=== PATIENT | female | born 1980 | race Caucasian/White ===

== ENCOUNTER 2017-02-20 18:32 | Inpatient (IN) | payer OTHER, SELFPAY ==
[~2017-02-20] VITALS: Ht 152.4 cm; Wt 146.0 kg
[2017-02-20] MEDS ORDERED: OMEP-110 PO (19:42)
[2017-02-20] MEDS ORDERED: DICY10CA53 PO (19:42)
[2017-02-20] MEDS ORDERED: ATOR20TA PO (19:42)
[2017-02-20] MEDS ORDERED: ALPR1TAB2 PO (19:42)
[2017-02-20] MEDS ORDERED: CHOL20002 PO (19:42)
[2017-02-20] MEDS ORDERED: LOSA1TAB17 PO (19:42)
[2017-02-20] MEDS ORDERED: SODIUM CHLORIDE FLUSH 10ML SYR IVF ONE (20:30)
[2017-02-20] MEDS ORDERED: SODIUM CHLORIDE 0.9% 1,000ML IVBOLUS ONE (20:30)
[2017-02-20] MEDS ORDERED: ONDANSETRON 2MG/ML, 2ML IVPush ONE (21:00)
[2017-02-20] MEDS ORDERED: MORPHINE SULFATE 4 MG/ML, 1ML IVPush PRN (21:00)
[2017-02-20 21:34] LABS: ASPARTATE AMINO TRANSFERASE 19 U/L (15-37); BLOOD UREA NITROGEN 11 mg/dL (7-18)
[2017-02-20] MEDS ORDERED: MORPHINE SULFATE 4 MG/ML, 1ML ONE (21:38)
[2017-02-20] MEDS ORDERED: ONDANSETRON 2MG/ML, 2ML ONE (21:38)
[2017-02-20] MEDS ORDERED: OMNIPAQUE 350 MG/ML, 150 ML BOTTLE ONE (22:00)
[2017-02-20] MEDS ORDERED: ENOXAPARIN 150 MG/ML SQ ONE (23:45)
[2017-02-21] MEDS ORDERED: ONDANSETRON 2MG/ML, 2ML IVP PRN
[2017-02-21] MEDS ORDERED: Enoxaparin 1 mg/kg protocol SQ SCH
[2017-02-21] MEDS ORDERED: HYDROcodone/APAP 5/325 TABLET PO PRN
[2017-02-21] MEDS ORDERED: CEFTAROLINE 600 MG in SODIUM CHLORIDE 0.9% 100 ML IV SCH
[2017-02-21 00:04] LABS: IS PT STATUS REG ER OR PRE ER? YES
[2017-02-21] MEDS ORDERED: KETOROLAC 30 MG/1 ML IVPush PRN (00:30)
[2017-02-21] MEDS ORDERED: KETOROLAC 30 MG/1 ML ONE (05:51)
[2017-02-21 05:52] LABS: BLOOD UREA NITROGEN 10 mg/dL (7-18)
[2017-02-21 06:03] LABS: ASPARTATE AMINO TRANSFERASE 19 U/L (15-37)
[2017-02-21 06:06] LABS: IS PT STATUS REG ER OR PRE ER? YES
[2017-02-21 06:13] LABS: ANISOCYTOSIS 2+; POLYCHROMASIA 1+
[2017-02-21] MEDS: MULTIVITAMIN 1 TABLET PO SCH (09:51)
[2017-02-21] MEDS: DICYCLOMINE 10 MG CAPSULE PO SCH ×2 (09:51→22:55)
[2017-02-21] MEDS: THIAMINE 100MG TABLET PO SCH (09:52)
[2017-02-21] MEDS: LOSARTAN 50MG TABLET PO SCH (09:52)
[2017-02-21] MEDS: FOLIC ACID 1 MG TABLET PO SCH (09:52)
[2017-02-21] MEDS: HYDROCHLOROTHIAZIDE 25 MG TABLET PO SCH (09:53)
[2017-02-21] MEDS ORDERED: ENOXAPARIN 150 MG/ML SQ SCH ×2 (12:00→12:30)
[2017-02-21] MEDS: NYSTATIN CRM 15GM TP SCH ×2 (12:07→22:56)
[2017-02-21] MEDS: ACETAMINOPHEN 325 MG TABLET PO PRN (14:55)
[2017-02-21] MEDS: ALPRazolam 1MG TABLET PO PRN (19:48)
[2017-02-21] MEDS: APIXABAN 5 MG TABLET PO SCH (22:56)
[2017-02-21] MEDS: ATORVASTATIN 20 MG TABLET PO SCH (22:56)
[2017-02-22] MEDS: ACETAMINOPHEN 325 MG TABLET PO PRN ×3 (02:12→21:06)
[2017-02-22 04:00] VITALS: BP 118/48
[2017-02-22 05:01] LABS: BLOOD UREA NITROGEN 15 mg/dL (7-18); TOTAL IRON BINDING CAPACITY 479 mcg/dL (250-450)
[2017-02-22 05:41] LABS: ANISOCYTOSIS 1+; MICROCYTOSIS 1+; POLYCHROMASIA 1+
[2017-02-22] MEDS: THIAMINE 100MG TABLET PO SCH (09:00)
[2017-02-22] MEDS: MULTIVITAMIN 1 TABLET PO SCH (09:00)
[2017-02-22] MEDS: FOLIC ACID 1 MG TABLET PO SCH (09:00)
[2017-02-22 10:15] LABS: ABG COLLECTION SITE RIGHT RADIAL; COLLATERAL CIRCULATION TESTING NORMAL
[2017-02-22] MEDS: LOSARTAN 50MG TABLET PO SCH (10:41)
[2017-02-22] MEDS: APIXABAN 5 MG TABLET PO SCH ×2 (10:41→21:07)
[2017-02-22] MEDS: DICYCLOMINE 10 MG CAPSULE PO SCH ×2 (10:41→21:06)
[2017-02-22] MEDS: HYDROCHLOROTHIAZIDE 25 MG TABLET PO SCH (10:42)
[2017-02-22 12:21] LABS: ABG COLLECTION SITE LEFT RADIAL; COLLATERAL CIRCULATION TESTING NORMAL
[2017-02-22] MEDS: NYSTATIN CRM 15GM TP SCH ×2 (14:00→21:07)
[2017-02-22 16:04] LABS: ABG COLLECTION SITE RIGHT RADIAL; COLLATERAL CIRCULATION TESTING NORMAL
[2017-02-22] MEDS: ALPRazolam 1MG TABLET PO PRN (21:06)
[2017-02-22] MEDS: ATORVASTATIN 20 MG TABLET PO SCH (21:07)
[2017-02-22] MEDS: ALBUTEROL SULFATE 2.5 MG/3 ML NPPB SCH (23:00)
[2017-02-23] MEDS: ALBUTEROL SULFATE 2.5 MG/3 ML NPPB SCH ×6 (02:26→22:53)
[2017-02-23] MEDS: ACETAMINOPHEN 325 MG TABLET PO PRN ×3 (04:02→23:17)
[2017-02-23 04:53] LABS: BLOOD UREA NITROGEN 7 mg/dL (7-18)
[2017-02-23 05:23] LABS: ABG COLLECTION SITE LEFT RADIAL; COLLATERAL CIRCULATION TESTING NORMAL
[2017-02-23 06:00] VITALS: BP 127/66
[2017-02-23] MEDS: NYSTATIN CRM 15GM TP SCH ×2 (09:00→21:11)
[2017-02-23] MEDS ORDERED: FUROSEMIDE 20 MG/2 ML IV ONE ×2 (09:00)
[2017-02-23] MEDS: MULTIVITAMIN 1 TABLET PO SCH (09:17)
[2017-02-23] MEDS: HYDROCHLOROTHIAZIDE 25 MG TABLET PO SCH (09:17)
[2017-02-23] MEDS: THIAMINE 100MG TABLET PO SCH (09:17)
[2017-02-23] MEDS: FOLIC ACID 1 MG TABLET PO SCH (09:17)
[2017-02-23] MEDS: LOSARTAN 50MG TABLET PO SCH (09:18)
[2017-02-23] MEDS: APIXABAN 5 MG TABLET PO SCH ×2 (09:18→21:11)
[2017-02-23] MEDS: DICYCLOMINE 10 MG CAPSULE PO SCH ×2 (09:18→21:11)
[2017-02-23] MEDS ORDERED: SODIUM CHLORIDE NASAL SPRAY 45ML BOTTLE NAS PRN (16:00)
[2017-02-23 19:16] LABS: ANTITHROMBIN III ACTIVITY 120 % (75-135)
[2017-02-23] MEDS: ATORVASTATIN 20 MG TABLET PO SCH (21:11)
[2017-02-23] MEDS: ALPRazolam 1MG TABLET PO PRN (22:27)
[2017-02-24] MEDS: ALBUTEROL SULFATE 2.5 MG/3 ML NPPB SCH ×6 (03:00→22:23)
[2017-02-24 04:00] VITALS: BP 132/66
[2017-02-24 04:58] LABS: ASPARTATE AMINO TRANSFERASE 16 U/L (15-37); BLOOD UREA NITROGEN 9 mg/dL (7-18)
[2017-02-24] MEDS ORDERED: POTASSIUM CHLORIDE 20 MEQ TAB.ER.PRT PO ONE (09:00)
[2017-02-24] MEDS: NYSTATIN CRM 15GM TP SCH ×2 (09:00→20:39)
[2017-02-24 09:18] LABS: ABG COLLECTION SITE RIGHT RADIAL; COLLATERAL CIRCULATION TESTING NORMAL
[2017-02-24] MEDS: HYDROCHLOROTHIAZIDE 25 MG TABLET PO SCH (09:32)
[2017-02-24] MEDS: APIXABAN 5 MG TABLET PO SCH ×2 (09:32→20:39)
[2017-02-24] MEDS: THIAMINE 100MG TABLET PO SCH (09:32)
[2017-02-24] MEDS: FOLIC ACID 1 MG TABLET PO SCH (09:32)
[2017-02-24] MEDS: DICYCLOMINE 10 MG CAPSULE PO SCH ×2 (09:32→20:38)
[2017-02-24] MEDS: MULTIVITAMIN 1 TABLET PO SCH (09:32)
[2017-02-24] MEDS: LOSARTAN 50MG TABLET PO SCH (09:33)
[2017-02-24] MEDS: ACETAMINOPHEN 325 MG TABLET PO PRN ×2 (18:25→23:05)
[2017-02-24] MEDS: ATORVASTATIN 20 MG TABLET PO SCH (20:39)
[2017-02-24] MEDS: ALPRazolam 1MG TABLET PO PRN (23:05)
[2017-02-25] MEDS: ALBUTEROL SULFATE 2.5 MG/3 ML NPPB SCH ×6 (03:00→23:00)
[2017-02-25 04:00] VITALS: BP 131/72
[2017-02-25 04:46] LABS: BLOOD UREA NITROGEN 6 mg/dL (7-18)
[2017-02-25] MEDS: THIAMINE 100MG TABLET PO SCH (08:57)
[2017-02-25] MEDS: LOSARTAN 50MG TABLET PO SCH (08:57)
[2017-02-25] MEDS: APIXABAN 5 MG TABLET PO SCH ×2 (08:57→20:54)
[2017-02-25] MEDS: POTASSIUM CHLORIDE 20 MEQ TAB.ER.PRT PO SCH ×2 (08:57→20:54)
[2017-02-25] MEDS: MULTIVITAMIN 1 TABLET PO SCH (08:57)
[2017-02-25] MEDS: FOLIC ACID 1 MG TABLET PO SCH (08:57)
[2017-02-25] MEDS: HYDROCHLOROTHIAZIDE 25 MG TABLET PO SCH (08:57)
[2017-02-25] MEDS: DICYCLOMINE 10 MG CAPSULE PO SCH ×2 (08:57→20:54)
[2017-02-25] MEDS: NYSTATIN CRM 15GM TP SCH ×2 (09:00→20:55)
[2017-02-25] MEDS ORDERED: FUROSEMIDE 20 MG/2 ML IV ONE (09:00)
[2017-02-25] MEDS: ACETAMINOPHEN 325 MG TABLET PO PRN ×2 (09:30→20:53)
[2017-02-25] MEDS ORDERED: APIX5TAB PO (12:55)
[2017-02-25] MEDS: ATORVASTATIN 20 MG TABLET PO SCH (20:54)
[2017-02-25] MEDS: ALPRazolam 1MG TABLET PO PRN (20:54)
[2017-02-26] MEDS: ALBUTEROL SULFATE 2.5 MG/3 ML NPPB SCH ×5 (02:32→20:04)
[2017-02-26 03:22] VITALS: BP 161/71
[2017-02-26] MEDS ORDERED: POTASSIUM CHLORIDE 20 MEQ TAB.ER.PRT PO ONE (07:00)
[2017-02-26] MEDS ORDERED: ALBUTEROL SULFATE 2.5 MG/3 ML NPPB PRN (07:30)
[2017-02-26] MEDS: DICYCLOMINE 10 MG CAPSULE PO SCH ×2 (08:08→20:11)
[2017-02-26] MEDS: LOSARTAN 50MG TABLET PO SCH (08:08)
[2017-02-26] MEDS: APIXABAN 5 MG TABLET PO SCH ×2 (08:09→20:10)
[2017-02-26] MEDS: HYDROCHLOROTHIAZIDE 25 MG TABLET PO SCH (08:09)
[2017-02-26] MEDS: FOLIC ACID 1 MG TABLET PO SCH (08:09)
[2017-02-26] MEDS: MULTIVITAMIN 1 TABLET PO SCH (08:10)
[2017-02-26] MEDS: THIAMINE 100MG TABLET PO SCH (08:10)
[2017-02-26] MEDS: ACETAMINOPHEN 325 MG TABLET PO PRN ×2 (08:11→18:39)
[2017-02-26] MEDS: NYSTATIN CRM 15GM TP SCH ×2 (18:36→21:36)
[2017-02-26] MEDS: POTASSIUM CHLORIDE 20 MEQ TAB.ER.PRT PO SCH ×2 (18:37→20:10)
[2017-02-26] MEDS: ATORVASTATIN 20 MG TABLET PO SCH (20:10)
[2017-02-26] MEDS: ALPRazolam 1MG TABLET PO PRN (20:11)
[2017-02-27] MEDS: ALBUTEROL SULFATE 2.5 MG/3 ML NPPB SCH (07:00)
[2017-02-27 08:01] LABS: BLOOD UREA NITROGEN 10 mg/dL (7-18)
[2017-02-27] MEDS: POTASSIUM CHLORIDE 20 MEQ TAB.ER.PRT PO SCH ×2 (08:33→20:39)
[2017-02-27] MEDS: THIAMINE 100MG TABLET PO SCH (08:33)
[2017-02-27] MEDS: FOLIC ACID 1 MG TABLET PO SCH (08:34)
[2017-02-27] MEDS: MULTIVITAMIN 1 TABLET PO SCH (08:34)
[2017-02-27] MEDS: DICYCLOMINE 10 MG CAPSULE PO SCH ×2 (08:34→20:38)
[2017-02-27] MEDS: LOSARTAN 50MG TABLET PO SCH (08:34)
[2017-02-27] MEDS: APIXABAN 5 MG TABLET PO SCH ×2 (08:34→20:40)
[2017-02-27] MEDS: HYDROCHLOROTHIAZIDE 25 MG TABLET PO SCH (08:34)
[2017-02-27] MEDS: NYSTATIN CRM 15GM TP SCH ×2 (08:40→20:41)
[2017-02-27 08:57] LABS: ANISOCYTOSIS 1+; MICROCYTOSIS 1+; POLYCHROMASIA 1+
[2017-02-27 14:00] VITALS: BP 133/68
[2017-02-27] MEDS: ALPRazolam 1MG TABLET PO PRN ×3 (19:31→21:26)
[2017-02-27] MEDS: ATORVASTATIN 20 MG TABLET PO SCH (20:38)
[2017-02-27 21:15] VITALS: BP 148/75
[2017-02-27] MEDS: ACETAMINOPHEN 325 MG TABLET PO PRN (21:25)
[2017-02-28 02:40] VITALS: BP 154/75
[2017-02-28 06:39] VITALS: BP 150/79
[2017-02-28] MEDS: APIXABAN 5 MG TABLET PO SCH ×2 (10:14→19:43)
[2017-02-28] MEDS: DICYCLOMINE 10 MG CAPSULE PO SCH ×2 (10:15→19:43)
[2017-02-28] MEDS: LOSARTAN 50MG TABLET PO SCH (10:15)
[2017-02-28] MEDS: POTASSIUM CHLORIDE 20 MEQ TAB.ER.PRT PO SCH ×2 (10:16→19:43)
[2017-02-28] MEDS: FOLIC ACID 1 MG TABLET PO SCH (10:16)
[2017-02-28] MEDS: HYDROCHLOROTHIAZIDE 25 MG TABLET PO SCH (10:16)
[2017-02-28] MEDS: MULTIVITAMIN 1 TABLET PO SCH (10:17)
[2017-02-28] MEDS: NYSTATIN CRM 15GM TP SCH ×2 (10:17→19:44)
[2017-02-28] MEDS: THIAMINE 100MG TABLET PO SCH (10:17)
[2017-02-28 14:07] VITALS: BP 117/54
[2017-02-28] MEDS: FERROUS SULFATE 325 MG TABLET PO SCH (18:05)
[2017-02-28] MEDS: ALPRazolam 1MG TABLET PO PRN ×2 (19:22→20:59)
[2017-02-28] MEDS: ATORVASTATIN 20 MG TABLET PO SCH (19:43)
[2017-02-28 19:59] VITALS: BP 149/57
[2017-02-28] MEDS ORDERED: APIXABAN 5 MG TABLET PO SCH (20:00)
[2017-02-28] MEDS: ACETAMINOPHEN 325 MG TABLET PO PRN (20:59)
[2017-03-01 00:59] VITALS: BP 129/50
[2017-03-01 07:05] VITALS: BP 155/72
[2017-03-01 07:23] LABS: BLOOD UREA NITROGEN 12 mg/dL (7-18)
[2017-03-01] MEDS: FOLIC ACID 1 MG TABLET PO SCH (08:31)
[2017-03-01] MEDS: HYDROCHLOROTHIAZIDE 25 MG TABLET PO SCH (08:31)
[2017-03-01] MEDS: THIAMINE 100MG TABLET PO SCH (08:31)
[2017-03-01] MEDS: APIXABAN 5 MG TABLET PO SCH (08:31)
[2017-03-01] MEDS: MULTIVITAMIN 1 TABLET PO SCH (08:31)
[2017-03-01] MEDS: FERROUS SULFATE 325 MG TABLET PO SCH (08:32)
[2017-03-01] MEDS: DICYCLOMINE 10 MG CAPSULE PO SCH (08:32)
[2017-03-01] MEDS: NYSTATIN CRM 15GM TP SCH (08:32)
[2017-03-01] MEDS: LOSARTAN 50MG TABLET PO SCH (08:32)
[2017-03-01] MEDS: ACETAMINOPHEN 325 MG TABLET PO PRN (08:32)
[2017-03-01 11:41] VITALS: BP 133/63
== END 2017-03-01 13:40 | disposition home or self-care (01) | DRG 871 ==
LOC: ED 21:51 → EDIP 22:59 → SUATTDRO 23:26 → CCU 02-21 07:20 → 4NOR 02-27 12:50 → DCLOUNGE 03-01 13:15
PROVIDERS: ADMIT Internal Medicine; ATTEND Internal Medicine
PROC: 5A09557 Assistance with Respiratory Ventilation, Greater than 96 Consecutive Hours, Continuous Positive Airway Pressure (ICD-10-PCS; principal; 2017-02-23)
DX: A41.9 Sepsis, unspecified organism (principal); I26.99 Other pulmonary embolism without acute cor pulmonale; J18.9 Pneumonia, unspecified organism; J96.01 Acute respiratory failure with hypoxia; J96.02 Acute respiratory failure with hypercapnia; E43 Unspecified severe protein-calorie malnutrition; J98.11 Atelectasis; L03.116 Cellulitis of left lower limb; Z68.44 Body mass index [BMI] 60.0-69.9, adult; E87.2 Acidosis; E66.2 Morbid (severe) obesity with alveolar hypoventilation; E78.00 Pure hypercholesterolemia, unspecified; E78.5 Hyperlipidemia, unspecified; E87.6 Hypokalemia; F41.1 Generalized anxiety disorder; F41.8 Other specified anxiety disorders; I10 Essential (primary) hypertension; K76.0 Fatty (change of) liver, not elsewhere classified; Z51.5 Encounter for palliative care; Z80.1 Family history of malignant neoplasm of trachea, bronchus and lung; Z82.49 Family history of ischemic heart disease and other diseases of the circulatory system; Z85.41 Personal history of malignant neoplasm of cervix uteri; Z87.891 Personal history of nicotine dependence
CPT/HCPCS: 36415; 36600; 71010; 71275; 76700; 80048; 80053; 81003; 81241; 82803; 82805; 83090; 83540; 83550; 83690; 83735; 84439; 84443; 84484; 84703; 85025; 85210; 85300; 85301; 85303; 85306; 85379; 86147; 87081; 93005; 93308; 93321; 93325; 93970; 94640; 94660; 96365; 96366; 96372; 96375; J0712; J1650; J1885; J2405; J7613; Q9967; J1940; J7030

== ENCOUNTER → 2017-09-15 | Outpatient (CLI) | payer OTHER ==
[~2017-09-15] MED LIST: ALPR1TAB2 PO; APIX5TAB PO; ATOR20TA PO; CHOL20002 PO; DICY10CA53 PO; LOSA1TAB22 PO; OMEP-110 PO; OMNIPAQUE 350 MG/ML, 100ML BOTTLE ONE
== END | disposition home or self-care (01) ==
LOC: RAD 15:30
PROVIDERS: ATTEND Nurse Practitioner
DX: Z86.711 Personal history of pulmonary embolism (principal); J98.11 Atelectasis
CPT/HCPCS: 71275; Q9967